=== PATIENT | female | born 1990 | race African-American/Black ===

== ENCOUNTER 2020-07-12 20:11 | Emergency (ER) | payer BC ==
--- NOTE | 2020-07-12 20:55 | ER Document Report ---
ED Medical Screen (RME) - General Chief Complaint: Abdominal Pain Stated Complaint: POSSIBLE ABSCESS/RADIOLIGY APPOINTMENT Time Seen by Provider: 07/12/20 20:46 Mode of Arrival: Ambulatory Information source: Patient Notes: HPI; 29-year-old female referred to the emergency room from urgent care for persistent vaginal past 15 days with abdominal pain and cramping. Denies fevers. Does complain of dysuria. States she did have a pelvic exam at the urgent care and was given a shot of Rocephin and a prescription for doxycycline and Flagyl. She was referred to the emergency room for possible endometriosis or tubular abscess PE: Alert and oriented x3. Lungs: Clear to auscultation without rales, rhonchi, wheezes heart: Regular rate rhythm without murmurs, rubs, gallops I have greeted and performed a rapid initial assessment of this patient. A comprehensive ED assessment and evaluation of the patient, analysis of test results and completion of the medical decision making process will be conducted by additional ED providers. I have specifically instructed the patient or family members with the patient to immediately return to any nursing staff should anything change in the patient's condition or with their chief complaint. TRAVEL OUTSIDE OF THE [place] IN LAST 30 DAYS: No - Related Data Allergies/Adverse Reactions: No Known Allergies Allergy (Unverified 07/12/20 20:44) Home Medications: MOTRIN. MELOXICAN. IRON Past Medical History - Social History Frequency of alcohol use: None Drug Abuse: None Physical Exam - Vital signs Vitals: Temp Pulse Resp BP Pulse Ox 98.7 F 76 16 151/102 H 99 07/12/20 20:24 07/12/20 20:24 07/12/20 20:24 07/12/20 20:24 07/12/20 20:24 Course - Vital Signs Vital signs: Temp Pulse Resp BP Pulse Ox 98.7 F 76 16 151/102 H 99 07/12/20 20:24 07/12/20 20:24 07/12/20 20:24 07/12/20 20:24 07/12/20 20:24
[2020-07-12 21:22] LABS: APPEARANCE,URINE CLEAR; BILIRUBIN,URINE NEGATIVE (NEGATIVE); COLOR,URINE YELLOW; GLUCOSE, URINE NEGATIVE (NEGATIVE); KETONES,URINE 80 mg/dL (NEGATIVE); LEUKOCYTE ESTERASE,URINE NEGATIVE (NEGATIVE); NITRITE,URINE NEGATIVE (NEGATIVE); PROTEIN,URINE NEGATIVE (NEGATIVE); URINE SPECIFIC GRAVITY 1.016; UROBILINOGEN,URINE NEGATIVE mg/dL (<2.0)
[2020-07-12 21:24] LABS: ABSOLUTE LYMPHOCYTES (AUTO) 1.8 10^3/uL (0.5-4.7); ABSOLUTE MONOCYTES (AUTO) 0.5 10^3/uL (0.1-1.4); ABSOLUTE NEUT (AUTO) 10.7 10^3/uL (1.7-8.2); BASOPHILS % (AUTO) 0.2 % (0-2); EOSINOPHILS % (AUTO) 0.1 % (0-6); HEMATOCRIT 39.2 % (36.0-47.0); HEMOGLOBIN 12.9 g/dL (12.0-15.5); LYMPHOCYTES % (AUTO) 13.9 % (13-45); MEAN CORPUSCULAR HEMOGLOBIN 28.6 pg (27.0-33.4); MEAN CORPUSCULAR HGB CONC 32.8 g/dL (32.0-36.0); MEAN CORPUSCULAR VOLUME 87 fl (80-97); MONOCYTES % (AUTO) 3.7 % (3-13); PLATELET COUNT 344 10^3/uL (150-450); RED BLOOD COUNT 4.49 10^6/uL (3.72-5.28); RED CELL DISTRIBUTION WIDTH 13.6 % (11.5-14.0); SEGMENTED NEUTROPHILS % (AUTO) 82.1 % (42-78); TOTAL CELLS COUNTED % (AUTO) 100 %
[2020-07-12 21:36] LABS: ALBUMIN 4.6 g/dL (3.5-5.0); ALKALINE PHOSPHATASE 40 U/L (38-126); ANION GAP 11 (5-19); ASPARTATE AMINO TRANSFERASE 33 U/L (14-36); BILIRUBIN,DIRECT 0.4 mg/dL (0.0-0.4); BILIRUBIN,TOTAL 0.4 mg/dL (0.2-1.3); BLOOD UREA NITROGEN 11 mg/dL (7-20); CALCIUM 9.9 mg/dL (8.4-10.2); CARBON DIOXIDE 24 mmol/L (22-30); CHLORIDE 101 mmol/L (98-107); GLUCOSE 84 mg/dL (75-110); POTASSIUM 4.1 mmol/L (3.6-5.0); TOTAL PROTEIN 7.7 g/dL (6.3-8.2)
--- NOTE | 2020-07-12 23:50 | RADIOLOGY REPORT (SQ) ---
EXAM DESCRIPTION: US PELVIS TRANSVAGINAL COMPLETED DATE/TME: 07/12/2020 23:17 CLINICAL HISTORY: 29 years, Female, vaginal bleeding COMPARISON: None. TECHNIQUE: LIMITATIONS: None. FINDINGS: There is a considerable amount of complex material in the region of the endometrium, likely blood clot. There are no focal fibroids. The uterus measures 10.1 x 6.4 x 5.8 cm. The ovaries are unremarkable. Blood flow was demonstrated in both ovaries with Doppler. IMPRESSION: Likely blood clot within the endometrial cavity. copyright 2010 [employer]- All Rights Reserved
--- NOTE | 2020-07-12 23:56 | ER Document Report ---
ED GI/ - General Chief Complaint: Abdominal Pain Stated Complaint: POSSIBLE ABSCESS/RADIOLIGY APPOINTMENT Time Seen by Provider: 07/12/20 20:46 Primary Care Provider: [facility] [Provider Group] - Follow up as needed Mode of Arrival: Ambulatory Information source: Patient Notes: 29-year-old female presented to ED for complaint of persistent abdominal cramping and pain with vaginal bleeding 27 June. She states that she had this pain for about 15 days. She states she is on her initial cycle. She did go to the urgent care and they did a pelvic exam started her on doxycycline Flagyl and gave her a shot of Rocephin. She was sent to the emergency room for possible endometriosis or tubular abscess. She is alert oriented respirations regular nonlabored speaking in full sentences. She does have abdominal tenderness generalized but no point tenderness. She states that she took her grandmothers meloxicam and her pain level went from a 5-2 but it is still sharp burning pain constantly. She has been for an ultrasound and I am waiting the r esults of that. I have discussed all of her lab work with her and given her written report to take to her primary care doctor. I have also informed her that she really needs to follow-up with [facility]EL[facility] for diagnosis of endometriosis. Constitutional: Negative for fever. HENT: Negative for sore throat. Eyes: Negative for visual changes. Cardiovascular: Negative for chest pain. Respiratory: Negative for shortness of breath. Gastrointestinal: Generalized abdominal pain for 15 days.. Genitourinary: Patient states her last menstrual period started 27 June but it is starting to get electrician now Musculoskeletal: Negative for back pain. Skin: Negative for rash. Neurological: Negative for headaches, weakness or numbness. 10 point ROS negative except as marked above and in HPI. VITAL SIGNS: Within normal limits. GENERAL: No acute distress, non-toxic appearance. HEAD: Normal with no signs of head trauma. EYES: PERRLA, EOMI, conjunctiva normal, no discharge. EARS: Hearing grossly intact. NOSE: Normal. THROAT: Oropharynx is normal. NECK: Normal range of motion, no tenderness, supple, no lymphadenopathy, No adenopathy, no JVD. CHEST: Clear breath sounds bilaterally. No wheezes, rales, or rhonchi. CARDIAC: Regular rate and rhythm. S1 and S2, without murmurs, gallops, or rubs. VASCULAR: No Edema. Peripheral pulses normal and equal in all extremities. ABDOMEN: Generalized tenderness but abdomen is soft. GASTROINTESTINAL: Bowel sounds normal GENITOURINARY: Normal, No tenderness LYMPATHTIC: No lymphadenopathy noted. MUSCULOSKELETAL: Good range of motion of all major joints. Extremities without clubbing, cyanosis or edema. NEUROLOGICAL: Alert and oriented x 3. No focal sensory or strength deficits. Speech normal. Follows commands appropriately. PSYCHIATRIC: Normal Affect, judgement and mood. SKIN: Normal appearance with no rashes or lesions. TRAVEL OUTSIDE OF THE [place] 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 MELOXICAN. IRON Past Medical History - General Information source: Patient - Social History Smoking Status: Former Smoker Frequency of alcohol use: None Drug Abuse: None Family History: Reviewed & Not Pertinent Patient has suicidal ideation: No Patient has homicidal ideation: No - Past Medical History Cardiac Medical History: Reports: None Pulmonary Medical History: Reports: None EENT Medical History: Reports: None Neurological Medical History: Reports: None Endocrine Medical History: Reports: None Renal/ Medical History: Reports: None Malignancy Medical History: Reports: None GI Medical History: Reports: None Musculoskeletal Medical History: Reports Hx Musculoskeletal Trauma Skin Medical History: Reports None Psychiatric Medical History: Reports: None Traumatic Medical History: Reports: None Infectious Medical History: Reports: None Past Surgical History: Reports: Hx Orthopedic Surgery - Knee scope for torn meniscus left - Immunizations Immunizations up to date: Yes Hx Diphtheria, Pertussis, Tetanus Vaccination: Yes Physical Exam - Vital signs Vitals: Temp Pulse Resp BP Pulse Ox 98.7 F 76 16 151/102 H 99 07/12/20 20:24 07/12/20 20:24 07/12/20 20:24 07/12/20 20:24 07/12/20 20:24 Course - Vital Signs Vital signs: Temp Pulse Resp BP Pulse Ox 98.3 F 73 16 137/94 H 100 07/13/20 00:20 07/13/20 00:20 07/13/20 00:20 07/13/20 00:20 07/13/20 00:20 - Laboratory Results Result Diagrams: 07/12/20 21:09 07/12/20 21:09 Laboratory Results Interpreted: 07/12/20 07/12/20 07/12/20 21:09 21:09 21:09 WBC 13.0 H Absolute Neuts (auto) 10.7 H Seg Neutrophils % 82.1 H Sodium 136.0 L ALT 40 H Urine Ketones 80 H Urine Blood SMALL H Critical Laboratory Results Reviewed: No Critical Results - Radiology Results Critical Radiology Results Reviewed: No Critical Results Discharge - Discharge Clinical Impression: Painful menstrual periods Condition: Stable Disposition: HOME, SELF-CARE Additional Instructions: You were seen today for pelvic pain and painful menstrual cycle. I have given you a copy of your written report of the ultrasound and all of your lab results. Please take these with you and follow-up with the [facility]EL[facility]NA[facility] as we discussed. Ibuprofen Ibuprofen is an excellent, safe drug for pain control. In addition, it has potent antiinflammatory effects which are beneficial, especially in the treatment of injuries, arthritis, or tendonitis. It's best to take ibuprofen with food. Persons with ulcer disease or allergy to aspirin should notify their physician of this before taking ibuprofen. Take the medication exactly as prescribed. Don't take additional doses unless instructed to do so by your doctor. If you develop wheezing, shortness of breath, hives, faintness, stomach pain, vomiting, or dark black stools, return for re-evaluation at once. Take the ibuprofen that you already have prescribed or you can take Aleve [id number] as we discussed. FOLLOW-UP CARE: If you have been referred to a physician for follow-up care, call the physicians office for an appointment as you were instructed or within the next two days. If you experience worsening or a significant change in your symptoms, notify the physician immediately or return to the Emergency Department at any time for re-evaluation. Forms: Elevated Blood Pressure, Return to Work Referrals: [facility] [Provider Group] - Follow up as needed
[2020-07-13 00:21] VITALS: BP 137/94
== END 2020-07-13 00:46 | disposition home or self-care (01) ==
LOC: ER 20:11
DX: N94.6 Dysmenorrhea, unspecified (principal); R10.84 Generalized abdominal pain; R10.817 Generalized abdominal tenderness; Z87.891 Personal history of nicotine dependence; Z79.899 Other long term (current) drug therapy; Z79.1 Long term (current) use of non-steroidal anti-inflammatories (NSAID)
CPT/HCPCS: 36415; 76830; 80053; 81001; 84703; 85025; 93976; 99284